=== PATIENT | female | born 1960 | race Caucasian/White ===

== ENCOUNTER 2016-07-11 12:26 | Day surgery (SDC) | payer OTHER ==
[~2016-07-11] VITALS: Ht 170.2 cm; Wt 90.9 kg
[~2016-07-11 12:26] MED LIST: BILB30CA2 PO; BLAC20TA PO; CYAN1TAB29 PO; UBID1CAP24 PO
[2016-07-11 12:47] VITALS: BP 156/108
[2016-07-11] MEDS ORDERED: LACTATED RINGERS 1,000 ML IV SCH (13:01)
[2016-07-11] MEDS ORDERED: BUPIVACAINE/PF-EPI 0.5% 1:200K ONE (14:01)
[2016-07-11] MEDS ORDERED: FENTANYL PF 250 MCG/5ML ONE (14:06)
[2016-07-11] MEDS ORDERED: MIDAZOLAM 1 MG/ML, 2ML ONE (14:06)
[2016-07-11] MEDS ORDERED: PROPOFOL 10 MG/ML, 20ML ONE (14:07)
[2016-07-11] MEDS ORDERED: ONDANSETRON 2MG/ML, 2ML ONE (14:07)
[2016-07-11] MEDS ORDERED: KETOROLAC 30 MG/1 ML ONE (14:07)
[2016-07-11] MEDS ORDERED: EPHEDRINE 50 MG/ML, 1ML ONE (14:07)
[2016-07-11] MEDS ORDERED: ROCURONIUM 10 MG/ML ONE (14:07)
[2016-07-11] MEDS ORDERED: DEXAMETHASONE 4 MG/ML, 1ML ONE (14:07)
[2016-07-11] MEDS ORDERED: CEFAZOLIN 1,000 MG ONE (14:07)
[2016-07-11] MEDS ORDERED: SUCCINYLCHOLINE 20 MG/ML, 10ML ONE (14:07)
[2016-07-11] MEDS ORDERED: MIDAZOLAM 1 MG/ML, 2ML IV PRN (14:30)
[2016-07-11] MEDS ORDERED: hydrALAzine 20 MG/ML, 1ML IV PRN (14:30)
[2016-07-11] MEDS ORDERED: ACETAMINOPHEN 325 MG TABLET PO PRN (14:30)
[2016-07-11] MEDS ORDERED: METOCLOPRAMIDE 5 MG/ML, 2ML IV PRN (14:30)
[2016-07-11] MEDS ORDERED: ONDANSETRON 2MG/ML, 2ML IVPush PRN ×2 (14:30→15:30)
[2016-07-11] MEDS ORDERED: LABETALOL 5MG/ML, 20ML IV PRN (14:30)
[2016-07-11] MEDS ORDERED: MEPERIDINE/PF 25MG/0.5ML IVPush PRN (14:30)
[2016-07-11] MEDS ORDERED: PROMETHAZINE 25 MG/ML, 1ML IV PRN (14:30)
[2016-07-11] MEDS ORDERED: OXYcodone 5 MG/5 ML ORAL.SOL UDC PO PRN (14:30)
[2016-07-11] MEDS ORDERED: ACETAMINOPHEN 650 MG/20.3 ML UDC ONE (15:24)
[2016-07-11] MEDS ORDERED: FENTANYL PF 100 MCG/2ML ONE ×2 (15:25→15:59)
[2016-07-11] MEDS ORDERED: HYDROmorphone 2 MG/ML, 1ML ONE (15:25)
[2016-07-11] MEDS ORDERED: ACETAMINOPHEN 325 MG TABLET ONE (15:25)
[2016-07-11] MEDS ORDERED: OXYcodone 5 MG/5 ML ORAL.SOL UDC ONE (15:25)
[2016-07-11] MEDS: HYDROmorphone 1 MG/ML, 1ML IV PRN ×4 (15:27→15:51)
[2016-07-11] MEDS: FENTANYL PF 100 MCG/2ML IV PRN ×3 (15:29→16:00)
[2016-07-11] MEDS ORDERED: KETOROLAC 30 MG/1 ML IVPush PRN (15:30)
[2016-07-11] MEDS ORDERED: morphine SULFATE 10 MG/ML, 1ML IVPush PRN (15:30)
[2016-07-11] MEDS ORDERED: PROMETHAZINE 25 MG/ML, 1ML ONE (16:05)
== END 2016-07-11 18:50 | disposition home or self-care (01) ==
LOC: OUT 12:26
PROVIDERS: ATTEND Surgery
DX: K41.90 Unilateral femoral hernia, without obstruction or gangrene, not specified as recurrent (principal); E66.9 Obesity, unspecified; Z68.31 Body mass index [BMI] 31.0-31.9, adult; Z98.51 Tubal ligation status
CPT/HCPCS: 49659; C1781; J0330; J0690; J1100; J1170; J1885; J2250; J2405; J2550; J2704; J3010; J7120; S2900